=== PATIENT | male | born 2005 | race Caucasian/White ===

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

== ENCOUNTER 2025-01-31 16:23 | Emergency (ER) | payer MEDICAID ==
[~2025-01-31] VITALS: Ht 177.8 cm; Wt 100.0 kg
[~2025-01-31 16:23] MED LIST changes: +CEPH500T MT; +SULF1TAB48 MT
[2025-01-31 16:30] VITALS: O2SAT 99
[2025-01-31 17:25] LABS: CLARITY URINE CLOUDY (CLEAR); COLOR URINE YELLOW (YELLOW); PH URINE 5.5 (4.5-8.0); PROTEIN URINE NEGATIVE (NEGATIVE); SPECIFIC GRAVITY URINE 1.008 (1.005-1.030)
[2025-01-31 17:26] LABS: GLUCOSE URINE NEGATIVE (NEGATIVE); KETONES URINE NEGATIVE (NEGATIVE); LEUKOCYTE ESTERASE URINE 3+ (NEGATIVE); NITRITE URINE NEGATIVE (NEGATIVE); OCCULT BLOOD URINE 2+ (NEGATIVE); UROBILINOGEN URINE 0.2 E.U./dL (0.2-1.0)
[2025-01-31 17:34] LABS: SQUAMOUS EPITHELIAL CELL URINE RARE /lpf (RARE/1+)
[2025-01-31 17:35] LABS: BACTERIA URINE 2+
[2025-01-31] MEDS ORDERED: CEPH250C2 MT (20:23)
[2025-01-31] MEDS: CEFTRIAXONE SODIUM 500MG VIAL IM ONE (20:44)
[2025-01-31] MEDS: DOXYCYCLINE HYCLATE 100MG CAPSULE PO ONE (20:45)
[2025-01-31] MEDS: LIDOCAINE HCL 1% 20ML VIAL INFIL ONE (20:45)
[2025-01-31 20:50] VITALS: BP 107/58; PULSE 63; RESP 17; TEMP 36.6; O2SAT 100
== END 2025-01-31 21:02 | disposition home or self-care (01) ==
LOC: ER 16:23
DX: R36.9 Urethral discharge, unspecified (principal); Z88.6 Allergy status to analgesic agent; Z79.899 Other long term (current) drug therapy
CPT/HCPCS: 99283; 87491; 87591; 81003; 87086; 96372; J0696; J2003